=== PATIENT | male | born 1960 | race Caucasian/White ===

== ENCOUNTER 2023-12-25 08:02 | Emergency (ER) | payer OTHER, SELFPAY ==
[2023-12-25 08:05] VITALS: PULSE 95
[2023-12-25 08:06] VITALS: BP 93/53; PULSE 92; TEMP 36.5; O2SAT 100; BMI 25.1
--- NOTE | 2023-12-25 08:10 | ECG_ITS ---
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
--- NOTE | 2023-12-25 08:10 | XR_ITS ---
The [address] [address] Patient Name: MYLA SEVILLA MRN: [id number] date: 1960 Sex: M Assigned Patient Location: ER Current Patient Location: ER Accession/Order Number: [id number] Exam Date: 12/25/2023 08:21 Report Date: 12/25/2023 08:57 At the request of: JALIL DSOUZA Procedure: XR chest 1V EXAMINATION: XR chest 1V HISTORY: dizzy COMPARISON: No relevant comparison available. FINDINGS: LUNGS: No significant pulmonary parenchymal abnormalities. VASCULATURE: No increased pulmonary vasculature. PLEURA: No pneumothorax, effusion, or pleural thickening. CARDIAC: No cardiomegaly or cardiac silhouette abnormality. MEDIASTINUM: No visible mass or adenopathy. BONES: No fracture or visible bone lesion. OTHER: Negative. XR/XR chest 1V IMPRESSION: 1. No acute cardiopulmonary process. Electronically authenticated by: ADELITA LINDA Date: 12/25/2023 08:57
--- NOTE | 2023-12-25 08:12 | ED_ITS ---
HPI HPI - General Adult General Chief complaint: Dizziness Stated complaint: GENERAL WEAKNESS Time Seen by Provider: 12/25/23 08:04 Mode of arrival: ambulance History of Present Illness HPI narrative: 63-year-old male presents to the emergency department for weakness and dizziness. It began today. Blood pressure was noted to be low for the paramedics and they gave him some IV fluids. He states he has had some sinus pressure recently but no cough or shortness of breath. No persistent vomiting or any significant diarrhea. He takes 2 blood pressure medications in the afternoon and thus has not taken them yet today. He is concerned because he has not been to his doctors in about 2 years and he has lost about 20 pounds in the past year or 2 and thinks his blood pressure medicine might need to be adjusted. He does not complain of any pain such as in his abdomen. Related Data Home Medications ?Medication ?Instructions ?Recorded ?Confirmed amlodipine 10 mg tablet 10 mg PO DAILY 12/25/23 12/25/23 lisinopril 30 mg tablet 30 mg PO DAILY 12/25/23 12/25/23 potassium chloride 20 mEq 20 meq PO DAILY 12/25/23 12/25/23 tablet,extended release(part/cryst) rosuvastatin 20 mg tablet 20 mg PO DAILY 12/25/23 12/25/23 Allergies Allergy/AdvReac Type Severity Reaction Status Date / Time No Known Drug Allergies Allergy Verified 12/25/23 08:10 Opioid HPI Opioid Management Most Recent Opioid Data: No Data to Display Review of Systems ROS Narrative A ten point review of systems is negative except as noted above. PFSH PFSH Social History Little interest or pleasure in doing things: not at all Feeling down, depressed, or hopeless: not at all Exam Narrative Exam Narrative: Nurses note and vital signs reviewed and patient is not hypoxic. General: The patient appears well and in no apparent distress. Patient is resting comfortably on cart. Skin: Warm, dry, no pallor noted. There is no rash noted. Head: Normocephalic, atraumatic Eye: Normal conjunctiva, no drainage Ears, Nose, Mouth, and Throat: oral mucosa is moist. Nares patent. Cardiovascular: Regular Rate and Rhythm, not tachycardic Respiratory: Patient is in no distress, no accessory muscle use, lungs are clear to auscultation, no wheezing, rales or rhonchi Back: non-tender GI: Soft and nontender Musculoskeletal: The patient has no evidence of calf tenderness, no pitting edema, symmetrical pulses noted bilaterally Neurological: A&O, normal speech Psychiatric: Cooperative Constitutional Vital Signs, click to edit/add: Last Vital Signs Temp 97.7 F 12/25/23 08:06 Pulse 88 12/25/23 09:33 Resp 15 12/25/23 09:33 BP 116/69 12/25/23 09:33 Pulse Ox 98 12/25/23 09:33 O2 Del Method Room Air 12/25/23 08:06 Course Vital Signs Vital signs: Vital Signs Pulse Rate 95 H 12/25/23 08:05 Temperature 97.7 F 12/25/23 08:06 Pulse Rate 88 12/25/23 09:33 Respiratory Rate 15 12/25/23 09:33 Blood Pressure 116/69 12/25/23 09:33 Pulse Oximetry 98 12/25/23 09:33 Oxygen Delivery Method Room Air 12/25/23 08:06 Medical Decision Making MDM Narrative Medical decision making narrative: The patient presented with low blood pressure which is now resolved. He had been on 2 blood pressure medications but apparently he was for period of time taking each 1 every other day to make them last. Recently however he got refills and was able to take both blood pressure medications on the same day and this appears to have dropped his blood pressure. He has had significant weight loss over the last year as well because of stress and as a result he may not need the blood pressure medication that he had been on previously, or at least in the doses he was on. For now we will stop both blood pressure medications and he will monitor his blood pressure at home and follow-up promptly with his PCP. Treatment diagnosis and follow-up were discussed with the patient. Differential Diagnosis Differential Diagnosis: Hypotension, hypovolemia, acute kidney injury, anemia Lab Data Lab results reviewed: Yes I reviewed the patient's lab results Labs: Lab Results 12/25/23 12/25/23 Range/Units 08:20 08:26 WBC 10.4 (4.0-11.0) 10^3/uL RBC 4.49 L (4.70-6.10) 10^6/uL Hgb 15.0 (14.0-18.0) g/dL Hct 44.8 (42.0-54.0) % MCV 99.8 H (80.0-94.0) fL MCH 33.4 (25.9-34.0) pg MCHC 33.5 (29.9-35.2) g/dL RDW 11.8 (11.0-15.0) % Plt Count 247 (150-450) 10^3/uL MPV 9.1 L (9.5-13.5) fL Neut % (Auto) 81.2 H (43.0-75.0) % Lymph % (Auto) 11.6 L (20.5-60.0) % [place] % (Auto) 6.2 (1.7-12.0) % Eos % (Auto) 0.3 L (0.9-7.0) % Baso % (Auto) 0.4 (0.2-2.0) % Neut # (Auto) 8.5 H (1.4-6.5) 10^3/uL Lymph # (Auto) 1.2 (1.2-3.8) 10^3/uL [place] # (Auto) 0.7 (0.3-0.8) 10^3/uL Eos # (Auto) 0.0 (0.0-0.7) 10^3/uL Baso # (Auto) 0.0 (0.0-0.1) 10^3/uL Abs Immat Gran (auto) 0.03 (0.00-0.03) 10^3/uL Imm/Tot Granulo (auto) 0.3 (0.0-0.5) % Sodium 141 (136-145) mmol/L Potassium 4.1 (3.5-5.1) mmol/L Chloride 102 (98-107) mmol/L Carbon Dioxide 22.5 (21.0-32.0) mmol/L Anion Gap 20.6 BUN 15.0 (7.0-18.0) mg/dL Creatinine 1.50 H (0.70-1.30) mg/dL Est GFR ( Amer) 58 L (>=60 mL/min/1.73m^2) Est GFR (Non-Af Amer) 47 L (>=60 mL/min/1.73m^2) BUN/Creatinine Ratio 10.0 Glucose 107 H (74-106) mg/dL Calcium 8.9 (8.5-10.1) mg/dL Troponin I High Sens 4.7 (4.0-76.1) pg/mL Urine Color Lt. yellow (YELLOW) Urine Clarity Clear (CLEAR) Urine pH 6.0 (5.0-9.0) Ur Specific [place] 1.010 (1.005-1.025) Urine Protein Trace (NEG/TRACE) mg/dL Urine Glucose (UA) Negative (NEGATIVE) mg/dL Urine Ketones Trace A (NEGATIVE) mg/dL Urine Occult Blood Trace-i (NEGATIVE) Urine Nitrite Negative (NEGATIVE) Urine Bilirubin Negative (NEGATIVE) Urine Urobilinogen 1.0 (0.2-1.0) EU/dL Ur Leukocyte Esterase Negative (NEGATIVE) Urine RBC 0-2 (0-2) #/HPF Urine WBC None seen (NONE SEEN) #/HPF Ur Squamous Epith Cells Few A (NONE/RARE) #/LPF Urine Crystals None seen (None Seen) #/HPF Urine Bacteria Trace A (NONE SEEN) #/HPF Urine Casts None seen (NONE SEEN) #/LPF Urine Mucus Trace A (NONE SEEN) Urine Sperm Seen Ur Culture Indicated? No Imaging Data Chest x-ray: Radiologist's impression: ITS Impressions Chest X-Ray 12/25/23 08:10 IMPRESSION: 1. No acute cardiopulmonary process. Electronically authenticated by: ADELITA LINDA Date: 12/25/2023 08:57 ECG Data Attestation: I personally reviewed and interpreted this ECG as follows: (EK G on my interpretation shows normal sinus rhythm with rate of 90 and no acute change) Discharge Plan Discharge Chief Complaint: Dizziness Clinical Impression: Acute hypotension Patient Disposition: Home, Self-Care Time of Disposition Decision: 09:46 Condition: Good Mode of Transportation: Private Vehicle Prescriptions / Home Meds: No Action amlodipine 10 mg tablet 10 mg PO DAILY lisinopril 30 mg tablet 30 mg PO DAILY potassium chloride 20 mEq tablet,ER particles/crystals 20 meq PO DAILY rosuvastatin 20 mg tablet 20 mg PO DAILY Print Language: Guatemalan Additional Instructions: Discontinue the amlodipine and lisinopril. Call your PCP when their office is open to schedule a prompt follow-up appointment to have your blood pressure rechecked. Monitor your blood pressure at home and record the readings to take with you when you see your PCP. Referrals: SHONNA ARENAS [Primary Care Provider] - 1 week
[2023-12-25 08:26] VITALS: BP 123/69
[2023-12-25] MEDS: 0.9 % SODIUM CHLORIDE 1,000 ML 1000 ML IV (08:27)
[2023-12-25 08:30] VITALS: PULSE 87; O2SAT 100
[2023-12-25 08:34] LABS: Basophils Percent Auto 0.4 % (0.2-2.0); Eosinophils Percent Auto 0.3 % (0.9-7.0); Hematocrit 44.8 % (42.0-54.0); Immature Granulocytes Abs Auto 0.03 10^3/uL (0.00-0.03); Immature Granulocytes Pct Auto 0.3 % (0.0-0.5); Lymphocytes Absolute Auto 1.2 10^3/uL (1.2-3.8); Lymphocytes Percent Auto 11.6 % (20.5-60.0); Mean Corpuscular HGB Conc 33.5 g/dL (29.9-35.2); Mean Corpuscular Hemoglobin 33.4 pg (25.9-34.0); Mean Corpuscular Volume 99.8 fL (80.0-94.0); Mean Platelet Volume 9.1 fL (9.5-13.5); Monocytes Absolute Auto 0.7 10^3/uL (0.3-0.8); Monocytes Percent Auto 6.2 % (1.7-12.0); Neutrophils Absolute Auto 8.5 10^3/uL (1.4-6.5); Neutrophils Percent Auto 81.2 % (43.0-75.0); Platelet Count 247 10^3/uL (150-450); Red Blood Count 4.49 10^6/uL (4.70-6.10); Red Cell Distribution Width 11.8 % (11.0-15.0); White Blood Count 10.4 10^3/uL (4.0-11.0)
[2023-12-25 08:35] LABS: Bilirubin Urine NEGATIVE (NEGATIVE); Blood Urine TRACE-I (NEGATIVE); Clarity Urine CLEAR (CLEAR); Color Urine LT. YELLOW (YELLOW); Glucose Urine UA NEGATIVE (NEGATIVE); Ketones Urine TRACE mg/dL (NEGATIVE); Leukocyte Esterase Urine NEGATIVE (NEGATIVE); Nitrite Urine NEGATIVE (NEGATIVE); Protein Urine TRACE mg/dL (NEG/TRACE)
[2023-12-25 08:45] LABS: Bacteria Urine TRACE #/HPF (NONE SEEN); Cast Seen? NONE SEEN #/LPF (NONE SEEN); Crystals Seen? None Seen #/HPF (None Seen); Mucus Urine TRACE (NONE SEEN); RBC Urine 0-2 #/HPF (0-2); Sperm Urine SEEN; Squamous Epithelial Cell Urine FEW #/LPF (NONE/RARE); Urine Culture Indicated NO; WBC Urine NONE SEEN #/HPF (NONE SEEN)
[2023-12-25 08:54] LABS: Anion Gap 20.6; Calcium 8.9 mg/dL (8.5-10.1); Carbon Dioxide 22.5 mmol/L (21.0-32.0); Chloride 102 mmol/L (98-107); Estimated GFR (African America 58 (>=60 mL/min/1.73m^2); Estimated GFR (Non-African Ame 47 (>=60 mL/min/1.73m^2); Glucose 107 mg/dL (74-106); Potassium 4.1 mmol/L (3.5-5.1); Sodium 141 mmol/L (136-145); Troponin I High Sensitivity 4.7 pg/mL (4.0-76.1)
[2023-12-25 09:00] VITALS: PULSE 87; O2SAT 97
[2023-12-25 09:33] VITALS: BP 116/69; PULSE 88; O2SAT 98
== END 2023-12-25 09:57 | disposition home or self-care (01) ==
PROVIDERS: Emergency Provider Emergency Medicine; PCP Nurse Practitioner
DX: I95.9 Hypotension, unspecified (principal)
CPT/HCPCS: 36415; 71045; 80048; 81001; 84484; 85025; 93005; 99285